=== PATIENT | male | born 1950 | race Caucasian/White ===

== ENCOUNTER → 2017-07-13 | Outpatient (CLI) | payer MEDICARE, OTHER ==
--- NOTE | 2017-07-14 08:39 | HKNOTE ---
DATE OF SERVICE: 07/13/2017 MAIN COMPLAINT: Pain in the left knee. HISTORY OF MAIN COMPLAINT: The patient is a 66-year-old male who complains of pain in his left knee . He had not had any problems with either knee or either foot and ankle prior to approximately 2 weeks ago when he developed a cough. He was seen at the [facility] Emergency Room where he was diag nosed as having bronchial pneumonia and a "blood clot" in the right leg. He was admitted to [facility] convalescent facility for treatment and retirement care until he would be able to walk. About t he time he was seen in the emergency room for his coughing problem he developed pain in both knees a nd in both ankles. He states he is "hardly able to walk." While he has been seen at [facility] ma y be pushing him around in a wheelchair, except for when physical therapy works with him and then he has been using a walker. He was seen by a diet attendant at [facility] who diagnosed plantar fasciitis and posterior tibial tend initis. He recommended a specific type of shoes which he got as soon as possible that remarkably im proved his ankle pain a great deal. Subsequently, the right knee pain, resolved. The only residual of these complaints is that he continues to have pain in the left knee, and even t hat has been minimal in the past 2 days. Patient has never been diagnosed with gout but both his brother and father have gout for which he ta kes Indomethacin and colchicine. [facility] gave him Celebrex and omeprazole. They also put him o n Xarelto for his deep vein thrombosis. PRESENT COMPLAINTS: The left knee still swells. It does not feel unstable, but it "feels like it i s going to hyperextend." The knee locks quite frequently. He does get rest pain. He takes [place] for pain. He continues to use a walker. When he still had p ain in the left knee he had pain with every step that he took. Patient has not had any cortisone injections. He is not an alcoholic. He has no other joint proble ms. PAST ORTHOPEDIC HISTORY: About 4 years ago the patient developed pain in his left knee. An MRI sca n was obtained which indicated a torn meniscus. 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 PAST MEDICAL HISTORY: 1. Recent bronchial pneumonia. 2. Deep venous thrombosis right leg. PAST SURGICAL HISTORY: Negative. DRUG ALLERGIES: NONE. MEDICATIONS 1. Xarelto. 2. Celebrex. 3. Omeprazole. 4. [place]. FAMILY HISTORY: Noncontributory. SYSTEMS REVIEW: Prone to dizzy spells, skipping heart beats, a recent history of DVT. Excess night urination, recent history of pneumonia, chronic cough. His ankles tend to swell from t yanna to time. Otherwise negative. HABITS: The patient does not smoke. He rarely drinks a glass of wine or a beer. VALVE TECHNICIAN: Dr. Oseas Vaz. PHYSICAL EXAMINATION: GENERAL: The patient seems to be a rather fragile looking 66-year-old male. He comes in with his d shireen. VITAL SIGNS: Height 5 feet 11 inches, weight 258 pounds, blood pressure 130/75, temperature 98.2. HIPS: Both hips have a full range of motion without pain. RIGHT KNEE: The right knee shows normal alignment. Active and passive extension is 0 degrees. Activ e and passive flexion is 135 degrees. The medial and lateral collateral ligaments and cruciate ligam ents are intact. Mery test is negative. There is no effusion, tenderness, scarring, crepitus, or cysts. The patella tracks normally. There is no tenderness on the articular surface of the patella o r in the patellar groove. The Q angle is normal. LEFT KNEE: The left knee shows normal alignment. Active and passive extension is 0 degrees. Active and passive flexion is 135 degrees. The medial and lateral collateral ligaments and cruciate ligamen ts are intact. Mery test is negative. There is no scarring, crepitus, or cysts. The patella track s normally. There is no tenderness on the articular surface of the patella or in the patellar groove . The Q angle is normal. Pain on forced extension and on forced flexion. Tender over the medial pam int line, 2+ effusion. IMAGING: Plain x-rays of the left knee obtained at [facility] and brought on a disk to my office w ere reviewed. These essentially show a normal knee for a man of his age (minimal degenerative galeano es). DISCUSSION: The main purpose of today's visit on the left knee. I am not able to explain what happ ened with the right knee or both ankles, especially in view of the fact that they all seem to start at the same time. With regard to the left knee: There was a sudden onset of pain in the left knee around about the ti me he was seen in the emergency room at [facility]. He was not able to walk because of the cash n in the knee and he got pain with every step. The knee was also locking, somewhat unstable and swo llen. Two days ago these symptoms seemed to resolve in an instant or so. The only pathology that would produce this type of history would be a torn meniscus. Patient was told 4 years ago that he had a torn meniscus in the left knee. MANAGEMENT: 1. The patient is being referred for an MRI scan of the left knee. 2. Orders were sent to [facility] physical therapy department to change the treatment plan to one of simple strengthening of the muscles of the left leg. Dictated By: SORIN STEVENSON/SONA Conf#: [id number] DID#: [id number] CC: Oseas Vaz; Artur Ly;*End*
== END | disposition home or self-care (01) ==
LOC: HKI 10:02
DX: M25.562 Pain in left knee (principal); R22.42 Localized swelling, mass and lump, left lower limb; Z79.02 Long term (current) use of antithrombotics/antiplatelets; R05 Cough; Z86.718 Personal history of other venous thrombosis and embolism
CPT/HCPCS: G0463

== ENCOUNTER → 2017-07-28 | Outpatient (CLI) | payer MEDICARE, OTHER ==
--- NOTE | 2017-07-28 22:23 | HKNOTE ---
DATE OF SERVICE: 07/28/2017 The patient comes in with his MRI scan for review. He continues to have the same symptoms in his kn ee. Patient was only just a few days ago discharged from the convalescent facility. He had been in the hospital with a diagnosis of "pneumonia and blood clots." He was admitted through the emergency som m and he does not have a personal physician. He is currently on Xarelto. IMAGING: The MRI scan of his left knee obtained on 07/19/[address] Rosales as show ing "diffuse horizontal tearing, possibly degenerative in origin, along the free edge of the midzone of the lateral meniscus. MANAGEMENT: 1. The patient needs to be fully evaluated by an production aide and be fully stabilized before we could even consider proceeding with any kind of surgery. 2. He was advised that he would need an arthroscopic operation on the knee. The procedure was discussed with him in a great amount of detail including possible complications an d postoperative course. He was advised I am recommending my associate, Dr. Barrow perform his surgery when the time comes. He needs to come and see Dr. Barrow for a separate consultation well before he wishes to have the [facility]. My senior court office assistant, Hussein, is working on getting him assigned to an production aide for full evaluation and ma jalen. Dictated By: SORIN STEVENSON/SONA Conf#: [id number] DID#: [id number]
--- NOTE | 2017-07-28 22:23 | HKNOTE ---
DATE OF SERVICE: 07/28/2017 The patient comes in with his MRI scan for review. He continues to have the same symptoms in his kn ee. Patient was only just a few days ago discharged from the convalescent facility. He had been in the hospital with a diagnosis of "pneumonia and blood clots." He was admitted through the emergency som m and he does not have a personal physician. He is currently on Xarelto. IMAGING: The MRI scan of his left knee obtained on 07/19/[address] Rosales as show ing "diffuse horizontal tearing, possibly degenerative in origin, along the free edge of the midzone of the lateral meniscus. MANAGEMENT: 1. The patient needs to be fully evaluated by an field administrative assistant and be fully stabilized before we could even consider proceeding with any kind of surgery. 2. He was advised that he would need an arthroscopic operation on the knee. The procedure was discussed with him in a great amount of detail including possible complications an d postoperative course. He was advised I am recommending my associate, Dr. Barrow perform his surgery when the time comes. He needs to come and see Dr. Barrow for a separate consultation well before he wishes to have the [facility]. My operator/assistant foreman, Hussein, is working on getting him assigned to an field administrative assistant for full evaluation and ma jalen. Dictated By: SORIN STEVENSON/SONA Conf#: [id number] DID#: [id number]
--- NOTE | 2017-07-28 22:23 | HKNOTE ---
DATE OF SERVICE: 07/28/2017 The patient comes in with his MRI scan for review. He continues to have the same symptoms in his kn ee. Patient was only just a few days ago discharged from the convalescent facility. He had been in the hospital with a diagnosis of "pneumonia and blood clots." He was admitted through the emergency som m and he does not have a personal physician. He is currently on Xarelto. IMAGING: The MRI scan of his left knee obtained on 07/19/[address] Rosales as show ing "diffuse horizontal tearing, possibly degenerative in origin, along the free edge of the midzone of the lateral meniscus. MANAGEMENT: 1. The patient needs to be fully evaluated by an cylinder sander operator and be fully stabilized before we could even consider proceeding with any kind of surgery. 2. He was advised that he would need an arthroscopic operation on the knee. The procedure was discussed with him in a great amount of detail including possible complications an d postoperative course. He was advised I am recommending my associate, Dr. Barrow perform his surgery when the time comes. He needs to come and see Dr. Barrow for a separate consultation well before he wishes to have the [facility]. My health assistant, Hussein, is working on getting him assigned to an cylinder sander operator for full evaluation and ma jalen. Dictated By: SORIN STEVENSON/SONA Conf#: [id number] DID#: [id number]
== END | disposition home or self-care (01) ==
LOC: HKI 09:28
DX: M23.201 Derangement of unspecified lateral meniscus due to old tear or injury, left knee (principal)
CPT/HCPCS: G0463